=== PATIENT | female | born 2000 | race Caucasian/White ===

== ENCOUNTER 2021-03-17 08:54 | Emergency (ER) | payer OTHER ==
[2021-03-17 08:57] VITALS: BP 132/81; PULSE 60; TEMP 98; BMI 28.9
[2021-03-17] MEDS ORDERED: ACETAMINOPHEN 500 MG TABLET (FP) PO ONE (09:41)
[2021-03-17] MEDS ORDERED: ACETAMINOPHEN 325 MG TABLET (FP) ONE (09:49)
[2021-03-17] MEDS ORDERED: KETOROLAC TROMETHAMINE 30 MG/1 ML VIAL IM ONE (09:52)
[2021-03-17] MEDS ORDERED: KETOROLAC TROMETHAMINE 30 MG/1 ML VIAL ONE (09:52)
[2021-03-17 10:29] LABS: HCG,QUALITATIVE URINE Negative
[2021-03-17 10:34] LABS: EPI CELLS >36 /uL (0-25.1); HYALINE CASTS 2 /uL (0-3.1); URINE APPEARANCE CLOUDY; URINE BACTERIA 2541 /uL (0-1359); URINE BILIRUBIN NEGATIVE (NEGATIVE); URINE COLOR YELLOW; URINE GLUCOSE (UA) NEGATIVE (NEGATIVE); URINE KETONE NEGATIVE (NEGATIVE); URINE LEUK ESTERASE 3+ (NEGATIVE); URINE NITRITE NEGATIVE (NEGATIVE); URINE PROTEIN 3+ (NEGATIVE); URINE RBC 2006 /uL (0-23.9); URINE WBC 1811 /uL (0-25.8)
== END 2021-03-17 11:15 | disposition home or self-care (01) ==
LOC: JER 08:54
PROC: 3E0233Z Introduction of Anti-inflammatory into Muscle, Percutaneous Approach (ICD-10-PCS; principal; 2021-03-17)
DX: N39.0 Urinary tract infection, site not specified (principal)
CPT/HCPCS: 81003; 84703; 87086; 87186; 99284-25

== ENCOUNTER 2023-06-03 13:11 | Emergency (ER) | payer OTHER ==
[2023-06-03 13:31] VITALS: BP 122/68; PULSE 52; RESP 18; TEMP 98.5; BMI 28.3
[2023-06-03] MEDS ORDERED: IBUPROFEN 600 MG TABLET (FP) PO ONE ×2 (14:09→14:10)
== END 2023-06-03 15:06 | disposition home or self-care (01) ==
LOC: JERFT 13:11
DX: S63.501A Unspecified sprain of right wrist, initial encounter (principal); V48.0XXA Car driver injured in noncollision transport accident in nontraffic accident, initial encounter; Y92.410 Unspecified street and highway as the place of occurrence of the external cause
CPT/HCPCS: 73110-TC-RT-FY; 73130-TC-RT-FY; 99283-25